=== PATIENT | female | born 1950 | race Caucasian/White ===

== ENCOUNTER → 2018-08-24 08:26 | Outpatient (CLI) | payer MEDICARE, OTHER ==
[2018-08-24 09:40] LABS: AMYLASE - SERUM 39 U/L (25-115); LIPASE 163 U/L (73-393)
== END | disposition home or self-care (01) ==
LOC: D.LAB 08:26 → D.NM 08:30 → D.LAB 08:30 → D.US 09:00
PROVIDERS: Internal Medicine Gastroenterology
DX: R10.9 Unspecified abdominal pain (principal); R11.0 Nausea

== ENCOUNTER 2018-09-11 05:40 | Day surgery (SDC) | payer MEDICARE, OTHER ==
[2018-09-08 11:20] LABS: HEMATOCRIT 41.9 % (36.0-48.0); HEMOGLOBIN 13.9 g/dL (12-16); MCH 32.1 pg (26.0-34.0); MCHC 33.2 g/dL (31.0-37.0); MCV 96.8 fL (80.0-100.0); MEAN PLATELET VOLUME 10.7 fL (7.4-10.4); RBC 4.33 10x6/uL (4.00-5.40); RDW 12.3 % (11.5-14.5); WBC 4.9 10x3/uL (4.8-10.8)
[~2018-09-11] VITALS: Ht 157.5 cm; Wt 70.8 kg
[~2018-09-11 05:40] MED LIST: ALBUTEROL SULF8.5 GM INH; CARAFATE1 G PO; LIPITOR20 MG PO; PROTONIX40 MG PO
[2018-09-11 06:17] VITALS: BP 125/68; Ht 157.5 cm; Wt 70.8 kg
[2018-09-11] MEDS ORDERED: HYDROCODON-ACE1 EAC7 PO (08:45)
--- NOTE | 2018-09-11 09:40 | NUR ---
PT REC'D TO ROOM VIA STRETCHER FROM PACU. AWAKE, ALERT, ORIENTED. ABD INC X 4 C/D/I WITH STERI STRIPS. AT BEDSIDE.
--- NOTE | 2018-09-11 10:15 | NUR ---
FULL LIQ DIET PROVIDED AND TOLERATED WITH NAUSEA.
--- NOTE | 2018-09-11 11:10 | NUR ---
PT UP TO BR, VOIDED WITHOUT DIFFICULTY. RET'D TO BED, IV D/C'D CATH INTACT.
--- NOTE | 2018-09-11 11:40 | NUR ---
D/C INSTRUCTIONS EXPLAINED TO PT. VOICED UNDERSTANDING. COPIES OF ALL GIVEN. D/C'D HOME VIA W/C TO PRIVATE CAR.
== END 2018-09-11 11:40 | disposition home or self-care (01) ==
LOC: D.OPS 05:40 → D.PAN 12:45 → D.OPS 12:45
PROVIDERS: Anesthesiology
DX: K82.8 Other specified diseases of gallbladder (principal)

== ENCOUNTER → 2018-10-17 10:07 | Outpatient (CLI) | payer MEDICARE, OTHER ==
[2018-09-11 06:17] VITALS: BMI 28.6
[~2018-10-17 10:07] MED LIST changes: +HYDROCODON-ACE1 EAC7 PO
== END | disposition home or self-care (01) ==
LOC: D.RAD 10:07
PROVIDERS: ATTEND Internal Medicine Gastroenterology
DX: R12 Heartburn (principal); R05 Cough